=== PATIENT | female | born 1995 | race Two or more races ===

== ENCOUNTER 2021-10-30 11:18 | Outpatient (REF) | payer MEDICAID, SELFPAY ==
[2021-10-30 13:48] LABS: Binax Internal Control QC Valid; Binax Now Covid-19 Ag Negative (Negative)
== END 2021-10-30 11:19 | disposition home or self-care (01) ==
LOC: HO.LAB 11:18
PROVIDERS: Visit Provider Internal Medicine
DX: Z20.822 Contact with and (suspected) exposure to COVID-19 (principal)
CPT/HCPCS: 36415; C9803

== ENCOUNTER 2024-09-21 09:31 | Emergency (ER) | payer OTHER, SELFPAY ==
[2024-09-21 09:59] VITALS: BMI 30.2
[2024-09-21 10:06] VITALS: BP 108/64; PULSE 80; RESP 16; TEMP 36.6; O2SAT 98
--- NOTE | 2024-09-21 10:59 | ED.EXTPRO ---
HPI - Extremity Problem General Chief complaint: Extremity Problem Stated complaint: Swelling L thumb Time Seen by Provider: 09/21/24 10:28 Source: patient and RN notes reviewed Mode of arrival: ambulatory Limitations: no limitations History of Present Illness ED Provider: Yelitza Oviedo PA-C HPI Narrative: This is a 29-year-old female who presents emergency department with complaints of left thumb pain since yesterday. Patient states that she does bite her nails, she has always done this since she was a child. She states that she believes that there is a hangnail in this region and she pulled it. She states that she noticed pain and swelling in her right thumb yesterday. She denies any fevers or chills. She has a history of paronychia has in the past, has not had 1 in many years. She is unsure when her last tetanus shot was. She is right-handed. No other complaints or concerns at this time. MD Complaint: extremity pain and extremity swelling Onset (ago): day(s) Pain Consistency: constant Location: right and upper extremity Quality: aching Radiation: none Relieving factors: nothing Exacerbating factors: range of motion and palpation Associated symptoms: denies other symptoms Related Data Previous Rx's ?Medication ?Instructions ?Recorded acetaminophen 500 mg tablet 500 mg PO Q6H PRN pain #30 tabs 09/21/24 (Tylenol Extra Strength) cephalexin 500 mg capsule 500 mg PO QID 7 days #28 caps 09/21/24 doxycycline hyclate 100 mg tablet 100 mg PO BID 7 days #14 tabs 09/21/24 ibuprofen 600 mg tablet 600 mg PO Q6H PRN pain #30 tabs 09/21/24 morphine 15 mg immediate release 15 mg PO Q4-6H PRN pain #7 tabs 09/21/24 tablet Allergies Allergy/AdvReac Type Severity Reaction Status Date / Time No Known Allergies Allergy Verified 09/21/24 10:01 Review of Systems Review of Systems: Yes all other systems are reviewed and are negative Constitutional: Constitutional: Reports as per [facility] Social History Social History Smoked in Last 30 Days: No Advance Directives: No Advance Directives Information Provided: No Do you have a plan to hurt others: No Plan Physical Exam Vital Signs: Vital Signs: Last Vital Signs Temp 98 F 09/21/24 15:04 Pulse 80 09/21/24 15:04 Resp 16 09/21/24 15:04 BP 108/64 09/21/24 15:04 Pulse Ox 98 09/21/24 15:04 O2 Del Method Room Air 09/21/24 15:04 BMI result Body Mass Index 30.2 Const: General: cooperative, comfortable and no acute distress Orientation/consciousness: patient oriented x3 Limitations: no limitations HEENT: Head: Yes normal to inspection, Yes normocephalic and Yes atraumatic Ears: hearing grossly normal bilaterally General nose exam: Normal external nose present Face and sinus: Yes normal facial exam Mouth: Normal oral and palatal mucosa present, oropharynx normal and moist mucous membranes Throat: Yes posterior oropharynx normal Eyes: General: appearance normal, both eyes and all related structures Eyelids: Yes eyelids normal Conjunctivae: conjunctivae normal Sclerae: sclerae normal Pupils: Equal, round and reactive pupils present EOM: EOMs intact bilaterally Neck: Neck: Yes normal visual inspection, Yes full ROM and Yes no lymphadenopathy Lymphatic: no lymphadenopathy noted Chest: Chest palpation & inspection: normal inspection of the chest Resp: Effort & Inspection: normal respiratory effort and able to speak in complete sentences Auscultation: clear to auscultation bilaterally, no crackles, no rales, no rhonchi and no wheezes Cardio: Rate: regular rate Rhythm: regular rhythm Heart sounds: S1 normal heart sound present and S2 normal heart sound present GI: Inspection: Yes normal to inspection Skin: General skin exam: no rashes or lesions noted Trauma: no lacerations or abrasions Wounds: no wounds Neuro: General: patient oriented x3 and moves all extremities Cranial nerves: Yes Equal, round and reactive pupils present Extrem: Other: L thumb with induration and fluctuance from right lateral nailbed extending into the fingerpad. TTP. Able to flex and extend at IP joint. Strong radial pulse. General: Yes normal to inspection Left upper extremity: normal to inspection Right lower extremity: normal to inspection Left lower extremity: normal to inspection Course Reevaluation(s) Reevaluation #1: I&D performed with attending physician Dr. Escalera. Digital block performed with partial success. Incision made with blood only expressed. No purulence noted. Wound packed with wick. Discussed with Vika Epperson. Advised pt to call today to make an appointment for thursday. D/c on keflex and doxy. Given return precautions. Pt stable to d/c. Medications Administered Discontinued Medications Generic Name Dose Route Start Last Admin Trade Name Ysabel PRN Reason Stop Dose Admin Acetaminophen 975 mg 09/21/24 13:36 09/21/24 13:52 Acetaminophen 325 Mg Tablet PO 09/21/24 13:37 975 mg ONCE ONE Administration Diphtheria/Tetanus/Acell Pertussis 0.5 ml 09/21/24 11:31 09/21/24 12:07 Diphth,Pertus(Acell),Tet Adult 0.5 Ml Syringe IM 09/21/24 11:32 Not Given .ONCE ONE Lidocaine HCl 5 ml 09/21/24 11:15 09/21/24 12:02 Lidocaine Hcl 1 % Mpf 5 Ml Vial SUBCUT 09/21/24 11:16 5 ml ONCE ONE Administration Lidocaine HCl 5 ml 09/21/24 12:33 09/21/24 12:43 Lidocaine Hcl 1 % Mpf 5 Ml Vial SUBCUT 09/21/24 12:34 5 ml ONCE ONE Administration Morphine Sulfate 15 mg 09/21/24 13:36 09/21/24 13:52 Morphine Sulfate Immed Release 15 Mg Tablet PO 09/21/24 13:37 15 mg ONCE ONE Administration Medical Decision Making Medical Decision Making MDM Narrative: This is a 29-year-old female who presents emergency department with complaints of left thumb pain. She bites her nails, and has had increased pain and swelling since. On arrival, vital signs within normal limits. She has tenderness with induration and fluctuance noted to the left thumb, lateral aspect. Patient was also evaluated by my attending physician, Dr. Escalera. Digital block was performed, I&D performed, see procedure note Differential Diagnosis Differential Diagnoses: The differential diagnosis associated with the presentation includes Paronychia, felon, cellulitis, abscess Consult Healthcare Provider Management of the patient was discussed with: Supervisor Sound Technician Vika Epperson PA-C Procedures Abscess I/D Site: hand Side (if applicable): right Local Anesthetic: lidocaine 1% Amount of anesthesia used (mL): 6 Technique: incised with blade Sent for culture/gram staining?: No Irrigation: No Packing used?: iodoform Complications: pain and bleeding Nerve Block Nerve Block 1: Time out performed: Yes Local Anesthetic: lidocaine 1% Amount of anesthesia used (mL): 6 Side: left Nerve Blocks: digital Procedure Successful: Yes (partially) Patient Tolerated Procedure: well Complications: inadequate anesthesia Discharge Plan Discharge Clinical Impression: Cellulitis of finger, left Patient Disposition: Home, Self-Care Instructions: Paronychia (ED), Cellulitis (ED) Additional Instructions: You were seen in the emergency department due to left finger infection. We attempted to drain the area, please keep weekend for the next 24 hours. If it falls out on its own that is okay. The area will continue to drain, this is normal, warm soaks will also be important for the healing process. Please take full course of antibiotics even if your symptoms improve. Alternate between ibuprofen and Tylenol as needed for pain. Also prescribing you oral morphine, only take this as needed for severe pain. If any new or worsening symptoms occur including but not limited to worsening pain, fevers, worsening range of motion, please seek emergent care. Please call the orthopedic office today for follow-up. Prescriptions: New ibuprofen 600 mg tablet 600 mg PO Q6H PRN (Reason: pain) Qty: 30 0RF acetaminophen [Tylenol Extra Strength] 500 mg tablet 500 mg PO Q6H PRN (Reason: pain) Qty: 30 0RF doxycycline hyclate 100 mg tablet 100 mg PO BID 7 Days Qty: 14 0RF cephalexin 500 mg capsule 500 mg PO QID 7 Days Qty: 28 0RF morphine 15 mg tablet 15 mg PO Q4-6H PRN (Reason: pain) Qty: 7 0RF Rx Instructions: Partial Fill upon patient request. Referrals: [facility] [Provider Group] Interventions: ED Discharge Assessment Last Done: 09/21/24 15:04 Discharge Date/Time: 09/21/24 15:04 Print Language: Lao
[2024-09-21] MEDS: Lidocaine HCl 1 % MPF 5 ML VIAL SUBCUT ×2 (12:02→12:43)
[2024-09-21] MEDS: Acetaminophen 325 MG TABLET 975 MG PO (13:52)
[2024-09-21] MEDS: Morphine Sulfate Immed Release 15 MG TABLET PO (13:52)
[2024-09-21 15:04] VITALS: BP 108/64; PULSE 80; RESP 16; TEMP 36.6; O2SAT 98
== END 2024-09-21 15:04 | disposition home or self-care (01) ==
PROVIDERS: Emergency Provider Emergency Medicine Emergency Medical Services; PCP Family Medicine
DX: L03.012 Cellulitis of left finger (principal); M79.645 Pain in left finger(s)
CPT/HCPCS: 10060; 99284; J2003

== ENCOUNTER 2024-09-27 10:06 | Outpatient (AMB) | payer OTHER, SELFPAY ==
--- NOTE | 2024-09-27 10:15 | A.OFFVIS_ITS ---
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 Patient reports she went to [facility] on 09/21/24 for swelling in her left thumb. She expresses they told her it was an infection so they cut her finger open attempting to drain it however she says nothing came out. She expresses pain with palpitation on the dorsal aspect of the left thumb and still has some swelling. 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 Patient states that when she was in the ED on 08/21/2024, the area of redness and swelling on her left thumb was lanced, but no purulence able to be expressed, only blood. Patient states that she was placed on oral antibiotics at that time, which she has been taking faithfully. Today, the patient reports that her symptoms have improved significantly, and she notices no redness and minimal swelling at this time. Patient denies any drainage from the incision site. Patient has also been soaking the finger in warm water as advised in the emergency department. Denies any numbness or tingling in the left hand. No other acute complaints or concerns at this time. [facility] Social History (Updated 09/27/24 @ 10:21 by ROBERT Doan) Alcohol intake: current Alcohol intake frequency: holidays/special occasions only Patient Tobacco Use Status: Never used Tobacco Substance Use Type: Marijuana Review of Systems Const All systems reviewed & are unremarkable except as noted in HPI and below Physical Exam Vital Signs: BMI result Body Mass Index 31.2 Extrem Other: Patient is alert, oriented, and in no acute distress. Neuro: Normal sensation of the tips of all digits of the left hand at this time Vascular: Cap refill brisk Pain: Patient reports minimal tenderness to palpation about the incision site of the left thumb No pain with range of motion ROM: Patient is able to make a closed fist and extend all digits of the left hand fully and without difficulty Skin: Well healing incision site noted over the dorsal and radial aspect of the patient's left thumb No drainage General: Mild edema noted around the incision site No ecchymosis, erythema, or evidence of infection. Psych: Appears grossly normal Affect normal Attitude cooperative Assessment & Plan Assessment & Plan (1) Paronychia of left thumb: Code(s): L03.012 - Cellulitis of left finger Category: Medical Plan 1. Paronychia of left thumb Status post bedside I and D Patient was discussed with Dr. Dennis, who was available to see the patient with me in clinic today, and a collaborative treatment plan was formed: Patient appears to be recovering well from this condition Patient is educated about the typical recovery course At this time, patient is informed that we will be refilling her antibiotics, although we will be switching to Keflex to t.i.d. Patient was amenable to this plan Patient is also cleared to return to work with a 5 lb weight limit in her left hand Patient will follow-up in 1 week for repeat wound check, sooner with any acute concerns Medications: Changed From cephalexin 500 mg PO QID 7 days 28 caps 0RF To cephalexin 500 mg PO TID 21 caps 0RF 7 days Refilled doxycycline hyclate 100 mg PO BID 14 tabs 0RF 7 days Discontinued morphine Partial Fill upon patient request. Discontinued Reason: Patient no longer taking 15 mg PO Q4-6H PRN 7 tabs 0RF pain Coding Level of Care Code New Pt Level 3 (96392) Diagnoses Paronychia of left thumb L03.012
[2024-09-27 10:20] VITALS: BMI 31.2
== END 2024-09-27 10:55 | disposition home or self-care (01) ==
PROVIDERS: PCP Family Medicine
DX: L03.012 Cellulitis of left finger (principal)
CPT/HCPCS: 99203

== ENCOUNTER → 2024-09-27 10:06 | Outpatient (BNVA) | payer OTHER, SELFPAY | PROVIDERS: PCP Family Medicine | DX: L03.012 Cellulitis of left finger (principal) | CPT/HCPCS: 99202 ==

== ENCOUNTER 2025-06-13 15:42 | Emergency (ER) | payer OTHER, SELFPAY ==
--- NOTE | ~2025-06-13 | XR_ITS ---
EXAMINATION: XR CHEST CLINICAL INFORMATION: chest pain COMPARISON: None available. TECHNIQUE: 2 views of the chest were obtained. FINDINGS: Cardiac silhouette is at the upper limits of normal. Lungs are clear and well aerated. There is no sign of pleural effusion. XR/XR chest 2V IMPRESSION: Cardiac silhouette size is at the upper limits of normal. Electronically signed by: Walter Kelly MD 06/13/2025 04:30 PM EDT
--- NOTE | ~2025-06-13 | CT_ITS ---
CLINICAL HISTORY: JIMENEZ R facial numbness CT head without contrast Comparison: None available Findings: No acute hemorrhage. No extra-axial fluid collection. No hydrocephalus, mass-effect or herniation. Le-white differentiation is maintained. White matter is within normal limits for age. No acute orbital pathology. No acute soft tissue abnormality. No fracture. The visualized paranasal sinuses are predominantly clear. The mastoid air cells are clear. Impression: No acute findings. This document has been electronically signed by: Nicole Parish MD on 06/13/2025 18:02:15
--- NOTE | 2025-06-13 15:46 | ECG_ITS ---
Test Reason : cp Blood Pressure : */* mmHG Vent. Rate : 73 BPM Atrial Rate : 73 BPM P-R Int : 134 ms QRS Dur : 82 ms QT Int : 368 ms P-R-T Axes : 32 0 6 degrees QTcB Int : 405 ms Normal sinus rhythm Normal ECG No previous ECGs available Referred By: Brenda Starkey Electronically Signed By: ANDREEA HURD MD
[2025-06-13 15:52] VITALS: BP 141/71; PULSE 71; RESP 18; TEMP 36.6; O2SAT 98; BMI 31.9
[2025-06-13 16:25] LABS: MANUAL DIFF FLAG NO
[2025-06-13 16:31] LABS: Hematocrit 39.8 % (37.0-47.0); Hemoglobin 12.7 g/dl (12.0-16.0); Imm Gran Abs Auto 0.03 X10*3/uL (0.00-0.03); Imm Gran Pct Auto 0.3 % (0.0-0.4); Lymphocytes Absolute Auto 2.1 X10*3/uL (1.2-4.9); Mean Corpuscular HGB Conc 31.9 g/dl (31.0-35.0); Mean Corpuscular Hemoglobin 29.3 pg (27.0-33.0); Mean Corpuscular Volume 91.7 fL (80.0-98.0); NRBC Abs Auto 0.000 X10*3/uL (0.0-0.012); NRBC Pct Auto 0.0 /100WBC (0.0-0.2); Platelet Count 219 X10*3/uL (160-400); Red Blood Count 4.34 X10*6/uL (4.20-5.50); White Blood Count 9.3 X10*3/uL (4.8-10.8)
[2025-06-13 16:47] LABS: Alanine Aminotransferase 47 U/L (0-31); Albumin Level 4.4 g/dL (3.5-5.0); Alkaline Phosphatase 77 U/L (39-117); Anion Gap 10 (12-20); Aspartate Amino Transferase 24 U/L (5-31); Blood Urea Nitrogen 11 mg/dL (9-16); Calcium 8.7 mg/dL (8.4-10.2); Carbon Dioxide 22 mmol/L (22-29); Chloride 113 mmol/L (96-108); Creatinine Clr Calc Pharmacy 101.7; Estimated Glomerular Filt Rate > 60; Lipase 43 U/L (8-78); Magnesium 2.1 mg/dL (1.6-2.6); Potassium 3.9 mmol/L (3.3-5.1); Sodium 141 mmol/L (135-145); Total Protein 7.0 g/dL (6.5-8.0)
[2025-06-13 16:51] LABS: Troponin-I High Sensitivity < 2.7 ng/L (<3.5-17.0)
[2025-06-13 20:34] LABS: Troponin-I High Sensitivity < 2.7 ng/L (<3.5-17.0)
[2025-06-13 20:40] VITALS: BP 122/68; PULSE 58; RESP 16; TEMP 37; O2SAT 100
--- NOTE | 2025-06-13 21:37 | ED.CHESTPAIN ---
HPI - Chest Pain General Chief Complaint: Chest Pain Stated Complaint: Head ache, Face numb, CP Time Seen by Provider: 06/13/25 21:37 Source: patient Mode of arrival: ambulatory Limitations: no limitations History of Present Illness ED Provider: Dr. Gisela Kay HPI narrative: It is 29-year-old female with history of migraine headaches presenting with right-sided headache and facial numbness that began last night. Has been using ibuprofen without relief at home. Admits that the pain is not similar to her history of migraines. Usually her migraines are more global and this is isolated to the right side of her head. Denies vision changes or hearing changes. No numbness/tingling/weakness of the extremities. No facial droop. No difficulty with word finding. Denies associated fever, cough or cold-type symptoms, shortness of breath, abdominal pain, nausea or vomiting, bowel changes or urinary complaints. Had been feeling well prior to this Related Data Previous Rx's ?Medication ?Instructions ?Recorded acetaminophen 500 mg tablet 500 mg PO Q6H PRN pain #30 tabs 09/21/24 (Tylenol Extra Strength) ibuprofen 600 mg tablet 600 mg PO Q6H PRN pain #30 tabs 09/21/24 cephalexin 500 mg capsule 500 mg PO TID 7 days #21 caps 09/27/24 doxycycline hyclate 100 mg tablet 100 mg PO BID 7 days #14 tabs 09/27/24 [id number]-[id number]-wkphnjzk 1 cap PO TID PRN headache #10 caps 06/13/25 50 mg-300 mg-40 mg capsule (Fioricet) Allergies Allergy/AdvReac Type Severity Reaction Status Date / Time No Known Allergies Allergy Verified 06/13/25 15:53 Review of Systems Review of Systems: as per HPI, full review of systems performed and negative but for the above mentioned pertinent positives and negatives. [facility] Social History Social History Alcohol intake: current Alcohol intake frequency: holidays/special occasions only Patient Tobacco Use Status: Never used Tobacco Substance Use Type: Marijuana Advance Directives: No Advance Directives Information Provided: No Do you have a plan to hurt others: No Plan Physical Exam Exam: Exam: GENERAL: Ill-Appearing, appears uncomfortable. SKIN: Normal skin color for ethnicity, warm, dry, no rashes noted. HEENT:? Normocephalic, atraumatic, no stridor, dry mucous membranes, dentition intact, EOMI. NECK: Soft, supple, full ROM, midline structures nontender, no step-offs, no deformities, no lymphadenopathy. CHEST: Heart regular rhythm, no murmurs, symmetric chest rise and fall. PULMONARY: Clear to auscultation bilaterally, diminished at the bases, no labored breathing, no wheezes/rhales/rhonchi. ABDOMINAL: Soft, nondistended, nontender, positive bowel sounds in all quadrants. : Deferred. MUSCULOSKELETAL: Normal tone, full range of motion, no deformities, no peripheral edema. NEURO: Alert and oriented x3, CN II through XII intact, equal strength and sensation bilateral upper and lower extremities, no focal neurologic deficits.? PSYCHIATRIC: Flat affect, fluid speech, good eye contact and appropriate demeanor. Vital Signs: Vital Signs: Last Vital Signs Temp 98.8 F 06/13/25 23:36 Pulse 81 06/13/25 23:36 Resp 16 06/13/25 23:36 BP 118/61 06/13/25 23:36 Pulse Ox 100 06/13/25 23:36 O2 Del Method Room Air 06/13/25 23:36 BMI result Body Mass Index 31.9 Medications Administered Discontinued Medications Generic Name Dose Route Start Last Admin Trade Name Freq PRN Reason Stop Dose Admin Ibuprofen 600 mg 06/13/25 23:12 06/13/25 23:19 Ibuprofen 600 Mg Tablet PO 06/13/25 23:13 600 mg ONCE ONE Administration Medical Decision Making Medical Decision Making [facility] Narrative: Patient presents with a chief complaint of headache. ? The differential diagnosis on this patient includes but is not limited to migraine headache, tension headache, cluster headache, subarachnoid hemorrhage, dissection, venous thrombosis, meningitis, sinusitis, bleeding or tumor.? Based on history and physical exam, appropriate work-up was initiated. ? Medicated with ibuprofen for headache. Imaging reassuring, exam benign. No focal deficits. PERC negative. HEART score 0. Suspect atypical migraine headache with aura. Using shared decision making, plan for discharge home to follow-up with primary care and/or specialist.? Patient understands and agrees with plan for discharge.? Discharged home in stable condition. Differential Diagnosis Differential Diagnoses: The differential diagnosis associated with the presentation includes (as above) Admission/Observation Consideration of admission/observation: Escalation of care including admission/observation considered Lab Data MDM Lab Attestation statement: I reviewed the patient's lab results. 06/13/25 16:21 06/13/25 16:21 Labs: Lab Results 06/13/25 06/13/25 Range/Units 16:21 20:05 WBC 9.3 (4.8-10.8) X10*3/uL RBC 4.34 (4.20-5.50) X10*6/uL Hgb 12.7 (12.0-16.0) g/dl Hct 39.8 (37.0-47.0) % MCV 91.7 (80.0-98.0) fL MCH 29.3 (27.0-33.0) pg MCHC 31.9 (31.0-35.0) g/dl RDW 14.3 (11.0-16.0) % Plt Count 219 (160-400) X10*3/uL MPV 11.0 (9.4-12.3) fL Immature Gran % (Auto) 0.3 (0.0-0.4) % Neut % (Auto) 66.5 (45-73) % Lymph % (Auto) 22.4 (20-40) % Faulkner % (Auto) 8.1 (2-11) % Eos % (Auto) 1.9 (0-4) % Baso % (Auto) 0.8 (0-2) % Lymph # (Auto) 2.1 (1.2-4.9) X10*3/uL Faulkner # (Auto) 0.8 (0.1-1.2) X10*3/uL Eos # (Auto) 0.2 (0.0-0.4) X10*3/uL Baso # (Auto) 0.1 (0.0-0.2) X10*3/uL Abs Immat Gran (auto) 0.03 (0.00-0.03) X10*3/uL Absolute Neuts (auto) 6.2 (2.0-8.3) x10*3/uL Absolute Nucleated RBC 0.000 (0.0-0.012) X10*3/uL Nucleated RBC % (auto) 0.0 (0.0-0.2) /100WBC Sodium 141 (135-145) mmol/L Potassium 3.9 (3.3-5.1) mmol/L Chloride 113 H (96-108) mmol/L Carbon Dioxide 22 (22-29) mmol/L Anion Gap 10 L (12-20) BUN 11 (9-16) mg/dL Creatinine 0.75 (0.5-1.4) mg/dL Estim Creat Clear Calc 101.7 Estimated GFR > 60 Random Glucose 103 (60-115) mg/dL Calcium 8.7 (8.4-10.2) mg/dL Magnesium 2.1 (1.6-2.6) mg/dL Total Bilirubin 0.3 (0.0-1.0) mg/dL AST 24 (5-31) U/L ALT 47 H (0-31) U/L Alkaline Phosphatase 77 (39-117) U/L Troponin I High Sens < 2.7 < 2.7 (<3.5-17.0) ng/L Total Protein 7.0 (6.5-8.0) g/dL Albumin 4.4 (3.5-5.0) g/dL Lipase 43 (8-78) U/L Beta HCG, Quant < 2 mIU/mL Independent Interpretation I performed an independent interpretation of an: Plain X-Ray Interpretation: My independent interpretation of the chest x-ray reveals no consolidations, pulmonary edema, pleural effusion, pneumothorax, obvious bony abnormalities. Radiology Impression Discussion of test interpretation with radiology: I have reviewed the radiologist's reading. Radiologist Impression: CT head without contrast Comparison: None available Findings: No acute hemorrhage. No extra-axial fluid collection. No hydrocephalus, mass-effect or herniation. Le-white differentiation is maintained. White matter is within normal limits for age. No acute orbital pathology. No acute soft tissue abnormality. No fracture. The visualized paranasal sinuses are predominantly clear. The mastoid air cells are clear. Impression: No acute findings. This document has been electronically signed by: Nicole Parish MD on 06/13/2025 18:02:15 Independent Historian Clinical information obtained from an independent historian. History obtained from or confirmed by: Parent Prescription Management I considered prescription management with: Pain Medication Chronic Conditions Patient?s care impacted by: Other (migraine headaches) Discharge Plan Discharge Clinical Impression: Atypical chest pain, Migraine headache without aura Patient Disposition: Home, Self-Care Instructions: Migraine Headache (ED), Noncardiac Chest Pain (ED) Additional Instructions: DIAGNOSIS & TREATMENT: You were seen in the Emergency Department for your chest pain and headache. We performed laboratory work, EKG, head CT and chest xray which did not reveal any acute abnormalities that would explain your symptoms. FURTHER CARE: We have not found any emergent physical exam or lab abnormalities that would require admission to the hospital today. Many people who come to the ER with chest pain do not leave with a specific diagnosis at the end of their visit. In the Emergency Department we try to make sure that there is no emergent problem that needs to cardiology consultation or antibiotics right now. This does not mean that your evaluation is complete--please be sure to follow up with your regular doctor as additional testing as an outpatient may be indicated Please be certain to drink plenty of fluids over the next several days. WHEN YOU SHOULD BE SEEN NEXT: Please follow-up with your primary care provider within the next 2-3 days for reevaluation of your symptoms. WHEN TO RETURN TO THE ED: Monitor your symptoms closely and return to the emergency department immediately for any new/worsening symptoms, worsening chest pain, shortness of breath, nausea, vomiting, fevers, chills, night sweats, you are unable to arrange follow-up care, or any other concerning symptoms. Prescriptions: New xdhyvyxbpa-iesboooeytzgj-tcul [Fioricet] 50-300-40 mg capsule 1 cap PO TID PRN (Reason: headache) Qty: 10 0RF No Action ibuprofen 600 mg tablet 600 mg PO Q6H PRN (Reason: pain) Qty: 30 0RF acetaminophen [Tylenol Extra Strength] 500 mg tablet 500 mg PO Q6H PRN (Reason: pain) Qty: 30 0RF doxycycline hyclate 100 mg tablet 100 mg PO BID 7 Days Qty: 14 0RF cephalexin 500 mg capsule 500 mg PO TID 7 Days Qty: 21 0RF Interventions: ED Discharge Assessment Last Done: 06/13/25 23:36 Discharge Date/Time: 06/13/25 23:36 Print Language: Yakut
[2025-06-13 22:41] VITALS: BP 118/61; PULSE 81; RESP 16; TEMP 37.1; O2SAT 100
[2025-06-13 23:36] VITALS: BP 118/61; PULSE 81; RESP 16; TEMP 37.1; O2SAT 100
== END 2025-06-13 23:36 | disposition home or self-care (01) ==
PROVIDERS: Physician Assistant Medical; Emergency Provider Emergency Medicine; PCP Pediatrics
DX: G43.009 Migraine without aura, not intractable, without status migrainosus (principal); R07.9 Chest pain, unspecified; R20.0 Anesthesia of skin
CPT/HCPCS: 36415; 70450; 71046; 80053; 83690; 83735; 84484; 84702; 85025; 93005; 99284

== ENCOUNTER → 2025-06-13 15:46 | Outpatient (BNV) | payer OTHER, SELFPAY | PROVIDERS: Emergency Provider Emergency Medicine; PCP Pediatrics; Visit Provider Internal Medicine Cardiovascular Disease | DX: R07.9 Chest pain, unspecified (principal) | CPT/HCPCS: 93010 ==

== ENCOUNTER → 2025-06-13 16:02 | Outpatient (BNV) | payer OTHER, SELFPAY | PROVIDERS: PCP Pediatrics; Visit Provider Radiology Diagnostic Radiology | DX: R07.9 Chest pain, unspecified (principal); R51.9 Headache, unspecified | CPT/HCPCS: 70450; 71046 ==